=== PATIENT | female | born 1995 | race Caucasian/White ===

== ENCOUNTER 2016-06-29 14:44 | Emergency (ER) | payer BC, OTHER ==
[2016-06-29 14:53] VITALS: BP 170/88
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
== END 2016-06-29 15:40 | disposition home or self-care (01) ==
LOC: JD.ED 14:44
DX: H66.91 Otitis media, unspecified, right ear (principal); Z88.1 Allergy status to other antibiotic agents; Z88.8 Allergy status to other drugs, medicaments and biological substances; Z79.899 Other long term (current) drug therapy; Z90.49 Acquired absence of other specified parts of digestive tract; Z98.890 Other specified postprocedural states
CPT/HCPCS: 99283

== ENCOUNTER 2020-07-26 08:56 | Inpatient (IN) | payer BC ==
[2020-07-26] MEDS ORDERED: Sodium Chloride 0.9% 10 ML Syringe FLUSH PRN (09:56)
[2020-07-26] MEDS ORDERED: Lidocaine 1% 50 ML MDV INJECT ONE (09:56)
[2020-07-26] MEDS ORDERED: Ondansetron 4 MG/2 ML SDV IVPUSH PRN (09:56)
[2020-07-26] MEDS ORDERED: Nalbuphine 10 MG/1 ML Vial IVPUSH PRN (09:56)
[2020-07-26] MEDS ORDERED: Oxytocin/Lactated Ringers 10 UNIT/1,000 ML BAG IV SCH ×2 (10:00)
--- NOTE | 2020-07-26 10:06 | PCM.LDHP ---
L&D History of Present Illness - General Date of Service: 07/26/20 Admit Problem/Dx: Admission Diagnosis/Problem Admission Diagnosis/Problem 07/26/20 09:58 Shalini is a 24-year-old 1 para 0 female who is admitted on the a.m. of 07/26/2020 at 39 and 07 weeks gestational age with an JINA of 08/02/2020 in active labor with progressive cervical dilation. Source of Information: Patient History Limitations: Reports: No Limitations - History of Present Illness Introduction:: Shalini is a 24-year-old 1 para 0 female who is admitted on the a.m. of 07/26/2020 at 39 and 07 weeks gestational age with an JINA of 08/02/2020 in active labor with progressive cervical dilation. She reports her contractions started during the night. She was able to get some rest early on but not after about midnight. She has had some bloody show. She denies any leakage of fluid. Baby has been active. She is a patient of [facility]. 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 Patient has had normal menstrual cycle since approximately age 13. They occur monthly. Not using any control at the time of conception. She is a transfer from Dr. Velasquez with her first visit with me occurring at approximately 30 weeks gestation. She denies any STIs and has not had any abnormal Pap smears in the past. course. Patient was seen early in the by Dr. Velasquez. She had a ultrasound done on 03/17/2020 which was consistent with dates. Her LMP 10/27/2019 was used for her dating parameter. A very early ultrasound done on 12/10/2019 at 6-1/7 weeks gestational age was consistent with her dates also. She has been seen on a regular basis in my office since 30 weeks gestation. Her weight gain has been approximately 10 pounds during the course of that time. Her vital signs have been stable and fundal height growth has been minimally ahead of schedule. Baby's been in vertex presentation. She is group B strep negative. RhoGam and Tdap were administered on 05/12/2020 at [facility]. She suffers from dyspepsia during the course of the and has been on medications for this. She is attempting to do natural labor but is okay with epidural in labor for analgesia. Patient's immunization history is positive for Tdap on 05/12/2020. She is rubella immune. Had her hepatitis vaccinations in 2013. Hepatitis B immunizations in 1997 and meningococcal immunization in 2009. Laboratory testing in : Blood is O- with a negative antibody screen. Patient received Rh immunoglobulin on 05/12/2020. Her first hemoglobin was 13.1 g/dL. Platelets were 219,000. Her Pap smear was negative with a negative HPV assay. She is rubella immune. Hepatitis B surface antigen and HIV assays were both negative. Chlamydia, gonorrhea, hepatitis C evaluations were all negative. Second trimester labs showed a hemoglobin of 11.7 g/dL. Her platelets were 212,000 and her 1 hour GTT was normal at 102. RPR 05/12/2020 was nonreactive. Group B strep screen was negative. Allergies: 1. Augmentin and penicillin which cause hives. Medications: 1. Famotidine 20 mg p.o. daily as needed for dyspepsia 2. vitamins daily 3. Ferrous sulfate 325 mg p.o. daily Past medical history: Unremarkable Past surgical history: Unremarkable Family history mother, sister and brother health is in good condition. Father's health is unknown. Maternal grandmother is alive but has kidney disease. Maternal grandfather has had some type of cancer. No anesthesia, bleeding, blood clotting or related problems noted in the family. Social history: Patient is single. She lives in [place]. Her fianc is Mustapha. She does not use any significant also alcohol, drugs or tobacco. 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 Review of systems: In general patient has no complaints. She is abdirizak. They are mild. She is having some bloody show. Baby's been active. Skin: Negative Lungs: No infectious symptoms or shortness of breath Cardiovascular: No chest pain or exercise intolerance Breasts: No lumps, changes in size, pain, dimpling, discharge or axillary or supraclavicular concerns. GI: Negative : Body habitus changes associated with . Musculoskeletal: Negative Neurological: Negative Physical exam: In general the patient is well-developed, well-nourished, pleasant female of stated age in no acute distress. Skin is warm dry without lesions. HEENT, neck and back within normal limits. Lungs are clear with good breath sounds in all lung bonner. Cardiovascular exam shows regular and rhythm without murmurs. Breast exam deferred at this time having been done at the first visit at [facility]. Is not repeated at this time. Abdomen is gravid with last fundal height clinic at 39 cm. Baby in vertex presentation.. Genital per digital exam today shows cervix to be 4 cm, 95% effaced, soft, -2 station, cephalic presentation, anterior, bag wolfe intact. Extremities and neurological exam are grossly within normal limits. - Related Data Allergies/Adverse Reactions: Allergies Allergy/AdvReac Type Severity Reaction Status Date / Time amoxicillin trihydrate Allergy Hives Verified 05/13/20 22:52 [From Augmentin] Penicillins Allergy Hives Verified 05/13/20 22:52 potassium clavulanate Allergy Hives Verified 05/13/20 22:52 [From Augmentin] artificial sweeteners Allergy Airway Uncoded 05/13/20 22:52 Tightness bees AdvReac Other Uncoded 05/13/20 22:52 Home Medications: Home Meds Famotidine [Acid Controller] 20 mg PO BID #60 tablet 04/05/20 [Rx] Ondansetron [Zofran ODT] 4 mg PO Q6H PRN 05/13/20 [History] No122/Iron/Folic Acid [ Multi Tablet] 1 each PO DAILY 05/13/20 [History] Past Medical History HEENT History: Reports: Impaired Vision, Other (See Below) Other HEENT History: several eye surgeries. Cardiovascular History: Reports: Heart Murmur - Past Surgical History HEENT Surgical History: Reports: Oral Surgery Social & Family History - Caffeine Use Caffeine Use: Reports: Coffee, Energy Drinks H&P Review of Systems - Review of Systems: Review Of Systems: See Below L&D Exam - Exam Exam: See Below - Problem List (1) 39 weeks gestation of SNOMED Code(s): 27801617 ICD Code: Z3A.39 - 39 WEEKS GESTATION OF Status: Acute Current Visit: Yes Problem List Initiated/Reviewed/Updated: Yes Assessment/Plan Comment:: 1Kinjal Loya is a 24-year-old 1 para 0 female who is admitted on the a.m. of 07/26/2020 at 39 and 07 weeks gestational age with an JINA of 08/02/2020 in active labor with progressive cervical dilation. 2. Group B strep negative 3. Patient plans to breast-feed 4. Patient is Rh- with O- blood. Received RhoGam on 05/12/2020. Is a candidate for RhoGam if baby's blood is Rh+. 5. Tdap given during the course of her . 6. Patient desires natural labor but is okay with epidural for analgesia. 7. Risk factors for the include obesity Plan: 1. Anticipate normal spontaneous vaginal delivery 2. Epidural as needed 3. Support breast-feeding decision 4. Routine admission labs to consist of CBC, RPR, COVID-19 testing
[2020-07-26] MEDS: Lactated Ringers 1,000 ML IV SCH ×3 (12:30→15:01)
[2020-07-26] MEDS ORDERED: Bupivacaine/fentaNYL/NS 100 ML Bag EPIDUR PRN (13:16)
[2020-07-26] MEDS ORDERED: ePHEDrine 50 MG/ML SDV IVPUSH PRN (13:16)
[2020-07-26] MEDS ORDERED: diphenhydrAMINE 50 MG/ML SDV IVPUSH PRN (13:16)
[2020-07-26] MEDS ORDERED: fentaNYL 100 MCG/2 ML SDV EPIDUR PRN (13:16)
--- NOTE | 2020-07-26 13:39 | PCM.PREANE ---
Preanesthetic Assessment - Procedure Proposed Procedure: Labor epidural - Anesthesia/Transfusion/Family Hx Anesthesia History: Prior Anesthesia Without Reaction Family History of Anesthesia Reaction: No Transfusion History: No Prior Transfusion(s) Intubation History: Unknown - Review of Systems General: No Symptoms Pulmonary: No Symptoms Cardiovascular: No Symptoms Gastrointestinal: No Symptoms Neurological: No Symptoms Other: Reports: None - Physical Assessment NPO Status Date: 07/26/20 NPO Status Time: 10:00 Vital Signs: BP 127/60 HR 78 RR 24 Oxygen sat 100 99.4 Height: 1.63 m Weight: 116.573 kg ASA Class: 2 Mental Status: Alert & Oriented x3 Airway Class: Mallampati = 2 Dentition: Reports: Normal Dentition Thyro-Mental Finger Breadths: 3 Mouth Opening Finger Breadths: 2 ROM/Head Extension: Full Lungs: Clear to Auscultation, Normal Respiratory Effort Cardiovascular: Regular Rate, Regular Rhythm - Lab Values: Laboratory Last Values WBC 17.08 K/mm3 (3.98-10.04) H 07/26/20 10:20 RBC 4.46 M/mm3 (3.98-5.22) 07/26/20 10:20 Hgb 12.5 gm/dl (11.2-15.7) 07/26/20 10:20 Hct 38.4 % (34.1-44.9) 07/26/20 10:20 MCV 86.1 fl (79.4-94.8) 07/26/20 10:20 MCH 28.0 pg (25.6-32.2) 07/26/20 10:20 MCHC 32.6 g/dl (32.2-35.5) 07/26/20 10:20 RDW Std Deviation 44.0 fL (36.4-46.3) 07/26/20 10:20 Plt Count 233 K/mm3 (182-369) 07/26/20 10:20 MPV 12.4 fl (9.4-12.3) H 07/26/20 10:20 Neut % (Auto) 80.4 % (34.0-71.1) H 07/26/20 10:20 Lymph % (Auto) 13.2 % (19.3-51.7) L 07/26/20 10:20 [place] % (Auto) 5.8 % (4.7-12.5) 07/26/20 10:20 Eos % (Auto) 0.2 (0.7-5.8) L 07/26/20 10:20 Baso % (Auto) 0.1 % (0.1-1.2) 07/26/20 10:20 Neut # (Auto) 13.73 K/mm3 (1.56-6.13) H 07/26/20 10:20 Lymph # (Auto) 2.26 K/mm3 (1.18-3.74) 07/26/20 10:20 [place] # (Auto) 0.99 K/mm3 (0.24-0.36) H 07/26/20 10:20 Eos # (Auto) 0.04 K/mm3 (0.04-0.36) 07/26/20 10:20 Baso # (Auto) 0.01 K/mm3 (0.01-0.08) 07/26/20 10:20 SARS-CoV-2 RNA (DAMARIS) Negative (NEGATIVE) 07/26/20 10:00 Reviewed and okay to proceed - Allergies Allergies/Adverse Reactions: Allergies Allergy/AdvReac Type Severity Reaction Status Date / Time amoxicillin trihydrate Allergy Hives Verified 07/26/20 14:26 [From Augmentin] Penicillins Allergy Hives Verified 07/26/20 14:26 potassium clavulanate Allergy Hives Verified 07/26/20 14:26 [From Augmentin] artificial sweeteners Allergy Airway Uncoded 05/13/20 22:52 Tightness bees AdvReac Other Uncoded 05/13/20 22:52 - Blood Blood Available: No Product(s) Available: None - Anesthesia Plan Pre-Op Medication Ordered: None - Acknowledgements Anesthesia Type Planned: Epidural Pt an Appropriate Candidate for the Planned Anesthesia: Yes Alternatives and Risks of Anesthesia Discussed w Pt/Guardian: Yes Pt/Guardian Understands and Agrees with Anesthesia Plan: Yes PreAnesthesia Questionnaire HEENT History: Reports: Impaired Vision, Other (See Below) Other HEENT History: several eye surgeries. Cardiovascular History: Reports: Heart Murmur Other Cardiovascular History: History of heart murmur as child. Not heard during assessment. 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: - Past Surgical History HEENT Surgical History: Reports: Oral Surgery Other HEENT Surgeries/Procedures: Eye surgery GI Surgical History: Reports: Appendectomy, Cholecystectomy - SUBSTANCE USE Second Hand Smoke Exposure: No Recreational Drug Use History: No - HOME MEDS Home Medications: Home Meds Famotidine [Acid Controller] 20 mg PO BID #60 tablet 04/05/20 [Rx] Ondansetron [Zofran ODT] 4 mg PO Q6H PRN 05/13/20 [History] No122/Iron/Folic Acid [ Multi Tablet] 1 each PO DAILY 05/13/20 [History] - CURRENT (IN HOUSE) MEDS Current Meds: Current Medications Diphenhydramine HCl (Diphenhydramine 50 Mg/Ml Sdv) 25 mg IVPUSH Q6H PRN PRN Reason: pruritis Ephedrine Sulfate (Ephedrine 50 Mg/Ml Sdv) 5 mg IVPUSH ASDIRECTED PRN PRN Reason: Hypotension Fentanyl (Fentanyl 100 Mcg/2 Ml Sdv) 100 mcg EPIDUR Q3H PRN PRN Reason: Pain Last Admin: 07/26/20 13:25 Dose: 100 mcg Documented by: Fentanyl/Bupivacaine HCl (Bupivacaine/Fentanyl/Ns 100 Ml Bag) 100 ml EPIDUR ASDIRECTED PRN PRN Reason: Pain Last Admin: 07/26/20 13:27 Dose: 100 ml Documented by: Oxytocin/Lactated Ringer's (Pitocin In Lr 10 Units/1,000 Ml) 10 unit in 1,000 mls @ 500 mls/hr IV .CONTINUOUS DEANA Lactated Ringer's (Ringers, Lactated) 1,000 mls @ 100 mls/hr IV ASDIRECTED DEANA Oxytocin/Lactated Ringer's (Pitocin In Lr 10 Units/1,000 Ml) 10 unit in 1,000 mls @ 12 mls/hr IV TITRATE DEANA; Protocol Nalbuphine HCl (Nalbuphine 10 Mg/1 Ml Vial) 10 mg IVPUSH Q2H PRN PRN Reason: Pain Last Admin: 07/26/20 10:25 Dose: 10 mg Documented by: Ondansetron HCl (Ondansetron 4 Mg/2 Ml Sdv) 4 mg IVPUSH Q4H PRN PRN Reason: Nausea/Vomiting Sodium Chloride (Sodium Chloride 0.9% 10 Ml Syringe) 10 ml FLUSH ASDIRECTED PRN PRN Reason: Keep Vein Open Discontinued Medications Lidocaine HCl (Lidocaine 1% 50 Ml Mdv) 50 ml INJECT ONETIME ONE Stop: 07/26/20 09:57
[2020-07-26] MEDS ORDERED: Lidocaine 1.5% with EPINEPHrine 1:200,000 5 ML Amp ONE (14:00)
[2020-07-26] MEDS ORDERED: Bupivacaine 0.25% 10 ML SDV ONE (14:00)
--- NOTE | 2020-07-26 20:52 | PCM.SN.2 ---
- Free Text/Narrative Note: Delivery note: Stage I: Shalini is a 24-year-old 1 now para 1-0-0-1 female who was admitted on the a.m. of 07/26/2020 at 39 and 07 weeks gestational age with an JINA of 08/02/2020 in active labor with progressive cervical dilation. She progressed spontaneously and at approximately 6 cm had artificial rupture membranes with resultant light meconium-stained amniotic fluid. She underwent epidural for analgesia in labor. She had good results with this. She advanced to complete cervical dilation by approximately 1730 hrs. heart tones were reassuring throughout the and labor course. Stage II: The patient delivered a viable, nicholson, male named Stu Christensen precipitously at 1948 hrs. on 07/26/2020 in a delivery attended only by by nursing personnel. She is reported to have delivered in an occiput anterior position. Baby weighed 3510 g (7 pounds 12 ounces). Length is 21.5 inches, Apgars were 8 and 9. Umbilical cord was allowed to pulsate until it stopped and then was clamped x2 and cut by the baby's father. Cord blood was obtained. Umbilical cord had 3 vessels. Upon delivery Pitocin was increased via IV to 500 cc an hour using the routine 10 units per 1 L solution concentration. This to facilitate increase in uterine tone and decrease likelihood of bleeding. Patient was noted to have a second-degree laceration with a side superficial laceration of the medial labia minora. The perineal laceration was repaired with a running suture of 3-0 Monocryl. Labor epidural analgesia was used for perineal laceration repair anesthesia with fair results. Stage III: The placenta delivered at 2002 hrs. in a [place] presentation. It appeared mildly meconium-stained. It appeared intact and complete and was discarded per patient desire. Estimated blood loss was 200 cc. Condition: Good. Patient plans to breast-feed.
[2020-07-26] MEDS ORDERED: Acetaminophen 325 MG Tab PO PRN (21:03)
[2020-07-26] MEDS ORDERED: Docusate Sodium 100 MG Cap PO PRN (21:03)
[2020-07-26] MEDS ORDERED: Benzocaine/Menthol 20%-0.5% Spray 56 GM Canister TOP PRN (21:03)
[2020-07-26] MEDS: Ibuprofen 600 MG Tab PO PRN (21:52)
[2020-07-26] MEDS: Witch Hazel Medicated Pads 40/Jar TOP PRN (21:52)
--- NOTE | 2020-07-27 07:03 | PCM48HPAN ---
Post Anesthesia Note - EVALUATION WITHIN 48HRS OF ANESTHETIC Vital Signs in Normal Range: Yes Patient Participated in Evaluation: Yes Respiratory Function Stable: Yes Airway Patent: Yes Cardiovascular Function Stable: Yes Hydration Status Stable: Yes Pain Control Satisfactory: Yes Nausea and Vomiting Control Satisfactory: Yes Mental Status Recovered: Yes Vital Signs: Last Vital Signs Temp 36.8 C 07/27/20 05:01 Pulse 81 07/27/20 05:01 Resp 16 07/27/20 05:01 BP 127/75 07/27/20 05:01 Pulse Ox 99 07/27/20 05:01
--- NOTE | 2020-07-27 07:46 | PCM.PNPP ---
- General Info Date of Service: 07/27/20 Functional Status: Reports: Pain Controlled - Review of Systems General: Reports: No Symptoms HEENT: Reports: No Symptoms Pulmonary: Reports: No Symptoms Cardiovascular: Reports: No Symptoms Gastrointestinal: Reports: No Symptoms Genitourinary: Reports: No Symptoms Musculoskeletal: Reports: No Symptoms Skin: Reports: No Symptoms Neurological: Reports: No Symptoms Psychiatric: Reports: No Symptoms - General Info Date of Service: 07/27/20 - Patient Data Vital Signs - Most Recent: Last Vital Signs Temp 36.8 C 07/27/20 05:01 Pulse 81 07/27/20 05:01 Resp 16 07/27/20 05:01 BP 127/75 07/27/20 05:01 Pulse Ox 99 07/27/20 05:01 Weight - Most Recent: 116.573 kg I&O - Last 24 Hours: Intake & Output 07/26/20 07/27/20 07/27/20 22:59 06:59 14:59 Intake Total 1999 2211 Output Total Balance 196V 2212 Lab Results - Last 24 Hours: Laboratory Results - last 24 hr 07/26/20 07/26/20 07/26/20 Range/Units 10:00 10:20 10:20 WBC 17.08 H (3.98-10.04) K/mm3 RBC 4.46 (3.98-5.22) M/mm3 Hgb 12.5 (11.2-15.7) gm/dl Hct 38.4 (34.1-44.9) % MCV 86.1 (79.4-94.8) fl MCH 28.0 (25.6-32.2) pg MCHC 32.6 (32.2-35.5) g/dl RDW Std Deviation 44.0 (36.4-46.3) fL Plt Count 233 (182-369) K/mm3 MPV 12.4 H (9.4-12.3) fl Neut % (Auto) 80.4 H (34.0-71.1) % Lymph % (Auto) 13.2 L (19.3-51.7) % [place] % (Auto) 5.8 (4.7-12.5) % Eos % (Auto) 0.2 L (0.7-5.8) Baso % (Auto) 0.1 (0.1-1.2) % Neut # (Auto) 13.73 H (1.56-6.13) K/mm3 Lymph # (Auto) 2.26 (1.18-3.74) K/mm3 [place] # (Auto) 0.99 H (0.24-0.36) K/mm3 Eos # (Auto) 0.04 (0.04-0.36) K/mm3 Baso # (Auto) 0.01 (0.01-0.08) K/mm3 RPR Non-reactive (NONREACTIVE) SARS-CoV-2 RNA (DAMARIS) Negative (NEGATIVE) Blood Type Gel Antibody Screen Screen RhIG Candidate? Rhogam Indicated 07/26/20 Range/Units 23:08 WBC (3.98-10.04) K/mm3 RBC (3.98-5.22) M/mm3 Hgb (11.2-15.7) gm/dl Hct (34.1-44.9) % MCV (79.4-94.8) fl MCH (25.6-32.2) pg MCHC (32.2-35.5) g/dl RDW Std Deviation (36.4-46.3) fL Plt Count (182-369) K/mm3 MPV (9.4-12.3) fl Neut % (Auto) (34.0-71.1) % Lymph % (Auto) (19.3-51.7) % [place] % (Auto) (4.7-12.5) % Eos % (Auto) (0.7-5.8) Baso % (Auto) (0.1-1.2) % Neut # (Auto) (1.56-6.13) K/mm3 Lymph # (Auto) (1.18-3.74) K/mm3 [place] # (Auto) (0.24-0.36) K/mm3 Eos # (Auto) (0.04-0.36) K/mm3 Baso # (Auto) (0.01-0.08) K/mm3 RPR (NONREACTIVE) SARS-CoV-2 RNA (DAMARIS) (NEGATIVE) Blood Type O NEGATIVE Gel Antibody Screen Negative Screen 0 ros/5 flds - neg RhIG Candidate? Yes Rhogam Indicated Yes, baby rh pos H Med Orders - Current: Current Medications Acetaminophen (Acetaminophen 325 Mg Tab) 650 mg PO Q4H PRN PRN Reason: mild pain or fever Benzocaine/Menthol (Benzocaine/Menthol 20%-0.5% [place] 56 Gm Canister) 0 gm TOP ASDIRECTED PRN PRN Reason: Perineal Comfort Measure Last Admin: 07/26/20 21:52 Dose: 1 can Documented by: Docusate Sodium (Docusate Sodium 100 Mg Cap) 100 mg PO BID PRN PRN Reason: Constipation Last Admin: 07/26/20 21:52 Dose: 100 mg Documented by: Ibuprofen (Ibuprofen 600 Mg Tab) 600 mg PO Q4H PRN PRN Reason: Mild pain or fever Last Admin: 07/26/20 21:52 Dose: 600 mg Documented by: Prenat Multivit/[place]/Iron/Folic Ac ( Multivitamin With Calcium/Folic Acid/Iron Tab) 1 each PO DAILY DEANA Witch Zandra (Witch Zandra Medicated Pads 40/Jar) 1 pad TOP ASDIRECTED PRN PRN Reason: Perineal Comfort Measure Last Admin: 07/26/20 21:52 Dose: 1 can Documented by: Discontinued Medications Diphenhydramine HCl (Diphenhydramine 50 Mg/Ml Sdv) 25 mg IVPUSH Q6H PRN PRN Reason: pruritis Ephedrine Sulfate (Ephedrine 50 Mg/Ml Sdv) 5 mg IVPUSH ASDIRECTED PRN PRN Reason: Hypotension Fentanyl (Fentanyl 100 Mcg/2 Ml Sdv) 100 mcg EPIDUR Q3H PRN PRN Reason: Pain Last Admin: 07/26/20 13:25 Dose: 100 mcg Documented by: Fentanyl/Bupivacaine HCl (Bupivacaine/Fentanyl/Ns 100 Ml Bag) 100 ml EPIDUR ASDIRECTED PRN PRN Reason: Pain Last Admin: 07/26/20 13:27 Dose: 100 ml Documented by: Oxytocin/Lactated Ringer's (Pitocin In Lr 10 Units/1,000 Ml) 10 unit in 1,000 mls @ 500 mls/hr IV .CONTINUOUS DEANA Lactated Ringer's (Ringers, Lactated) 1,000 mls @ 100 mls/hr IV ASDIRECTED DEANA Last Admin: 07/26/20 15:01 Dose: 100 mls/hr Documented by: Oxytocin/Lactated Ringer's (Pitocin In Lr 10 Units/1,000 Ml) 10 unit in 1,000 mls @ 12 mls/hr IV TITRATE DEANA; Protocol Lidocaine HCl (Lidocaine 1% 50 Ml Mdv) 50 ml INJECT ONETIME ONE Stop: 07/26/20 09:57 Nalbuphine HCl (Nalbuphine 10 Mg/1 Ml Vial) 10 mg IVPUSH Q2H PRN PRN Reason: Pain Last Admin: 07/26/20 10:25 Dose: 10 mg Documented by: Ondansetron HCl (Ondansetron 4 Mg/2 Ml Sdv) 4 mg IVPUSH Q4H PRN PRN Reason: Nausea/Vomiting Sodium Chloride (Sodium Chloride 0.9% 10 Ml Syringe) 10 ml FLUSH ASDIRECTED PRN PRN Reason: Keep Vein Open - Infant Interaction Support Person: Significant Other - Recovery Exam Fundal Tone: Firm Fundal Level: At Umbilicus Fundal Placement: Midline Lochia Amount: Small Lochia Color: Rubra/Red Perineum Description: Intact, Minimal Bruising/Swelling Episiotomy/Laceration: Approximated Bladder Status: Voiding Urinary Elimination: Voided - Exam General: Alert, Oriented Neck: Supple Lungs: Clear to Auscultation, Normal Respiratory Effort Cardiovascular: Regular Rate, Regular Rhythm GI/Abdominal Exam: Normal Bowel Sounds, Soft, Non-Tender, No Organomegaly, No Distention, No Abnormal Bruit, No Mass, Pelvis Stable Extremities: Normal Inspection, Normal Range of Motion, Non-Tender, No Pedal Edema, Normal Capillary Refill Skin: Warm, Dry, Intact Wound/Incisions: Healing Well Neurological: No New Focal Deficit Psy/Mental Status: Alert, Normal Affect, Normal Mood - Problem List Review Problem List Initiated/Reviewed/Updated: Yes - Assessment Assessment:: day 1. Doing well. No complaints. Minimal bleeding. Minimal pain. Probable discharge tomorrow.
[2020-07-27] MEDS: Prenatal Multivitamin with Calcium/Folic Acid/Iron Tab PO SCH (09:05)
[2020-07-27] MEDS: Ibuprofen 600 MG Tab PO PRN ×2 (09:16→22:56)
[2020-07-27] MEDS: Witch Hazel Medicated Pads 40/Jar TOP PRN (16:05)
--- NOTE | 2020-07-28 09:09 | PCM.DCSUM1 ---
Discharge Summary - Hospital Course Diagnosis: Stroke: No Modified Lara Scale: No Symptoms at All Modified Lara Scale Score: 0 - Discharge Data Discharge Date: 07/28/20 Discharge Disposition: Home, Self-Care 01 Condition: Good - Referral to Home Health Primary Care Physician: Martínez Espino MD - Patient Summary/Data Hospital Course: Stage I: Shalini is a 24-year-old 1 now para 1-0-0-1 female who was admitted on the a.m. of 07/26/2020 at 39 and 07 weeks gestational age with an JINA of 08/02/2020 in active labor with progressive cervical dilation. She progressed spontaneously and at approximately 6 cm had artificial rupture membranes with resultant light meconium-stained amniotic fluid. She underwent epidural for analgesia in labor. She had good results with this. She advanced to complete cervical dilation by approximately 1730 hrs. heart tones were reassuring throughout the and labor course. Stage II: The patient delivered a viable, nicholson, male infant named Stu Christensen precipitously at 1948 hrs. on 07/26/2020 in a delivery attended only by by nursing personnel. She is reported to have delivered in an occiput anterior position. Baby weighed 3510 g (7 pounds 12 ounces). Length is 21.5 inches, Apgars were 8 and 9. Umbilical cord was allowed to pulsate until it stopped and then was clamped x2 and cut by the baby's father. Cord blood was obtained. Umbilical cord had 3 vessels. Upon delivery Pitocin was increased via IV to 500 cc an hour using the routine 10 units per 1 L solution concentration. This to facilitate increase in uterine tone and decrease likelihood of bleeding. Patient was noted to have a second-degree laceration with a side superficial laceration of the medial labia minora. The perineal laceration was repaired with a running suture of 3-0 Monocryl. Labor epidural analgesia was used for perineal laceration repair anesthesia with fair results. Stage III: The placenta delivered at 2002 hrs. in a [place] presentation. It appeared mildly meconium-stained. It appeared intact and complete and was discarded per patient desire. Estimated blood loss was 200 cc. Condition: Good. Patient plans to breast-feed. - Patient Instructions Diet: Usual Diet as Tolerated Activity: No Strenuous Activities Driving: May Drive Today Showering/Bathing: May Shower Notify Provider of: Fever, Increased Pain, Swelling and Redness, Drainage, Nausea and/or Vomiting - Discharge Plan *PRESCRIPTION DRUG MONITORING PROGRAM REVIEWED*: No *COPY OF PRESCRIPTION DRUG MONITORING REPORT IN PATIENT CARLY: No Home Medications: Home Meds Famotidine [Acid Controller] 20 mg PO BID #60 tablet 04/05/20 [Rx] No122/Iron/Folic Acid [ Multi Tablet] 1 each PO DAILY 05/13/20 [History] Referrals: Martínez Espino MD [Primary Care Provider] - (2 weeks) - Discharge Summary/Plan Comment DC Time >30 min.: No - General Info Date of Service: 07/28/20 Functional Status: Reports: Pain Controlled - Review of Systems General: Reports: No Symptoms HEENT: Reports: No Symptoms Pulmonary: Reports: No Symptoms Cardiovascular: Reports: No Symptoms Gastrointestinal: Reports: No Symptoms Genitourinary: Reports: No Symptoms Musculoskeletal: Reports: No Symptoms Skin: Reports: No Symptoms Neurological: Reports: No Symptoms Psychiatric: Reports: No Symptoms - Patient Data Vitals - Most Recent: Last Vital Signs Temp 36.7 C 07/28/20 04:25 Pulse 72 07/28/20 04:25 Resp 14 07/28/20 04:25 BP 131/77 07/28/20 04:25 Pulse Ox 100 07/28/20 04:25 Weight - Most Recent: 116.573 kg Lab Results - Last 24 hrs: Laboratory Results - last 24 hr 07/26/20 Range/Units 23:08 Blood Type O NEGATIVE Gel Antibody Screen Negative Screen 0 ros/5 flds - neg RhIG Candidate? Yes Rhogam Indicated Yes, baby rh pos H Med Orders - Current: Current Medications Acetaminophen (Acetaminophen 325 Mg Tab) 650 mg PO Q4H PRN PRN Reason: mild pain or fever Benzocaine/Menthol (Benzocaine/Menthol 20%-0.5% Fletcher 56 Gm Canister) 0 gm TOP ASDIRECTED PRN PRN Reason: Perineal Comfort Measure Last Admin: 07/26/20 21:52 Dose: 1 can Documented by: Docusate Sodium (Docusate Sodium 100 Mg Cap) 100 mg PO BID PRN PRN Reason: Constipation Last Admin: 07/26/20 21:52 Dose: 100 mg Documented by: Ibuprofen (Ibuprofen 600 Mg Tab) 600 mg PO Q4H PRN PRN Reason: Mild pain or fever Last Admin: 07/27/20 22:56 Dose: 600 mg Documented by: Prenat Multivit/Stallion Manager/Iron/Folic Ac ( Multivitamin With Calcium/Folic Acid/Iron Tab) 1 each PO DAILY DEANA Last Admin: 07/27/20 09:05 Dose: 1 each Documented by: Lorena De Paz (Lorena De Paz Medicated Pads 40/Jar) 1 pad TOP ASDIRECTED PRN PRN Reason: Perineal Comfort Measure Last Admin: 07/27/20 16:05 Dose: 1 tub Documented by: Discontinued Medications Bupivacaine HCl (Bupivacaine 0.25% 10 Ml Sdv) 30 ml .ROUTE .STK-MED ONE Stop: 07/26/20 14:01 Diphenhydramine HCl (Diphenhydramine 50 Mg/Ml Sdv) 25 mg IVPUSH Q6H PRN PRN Reason: pruritis Ephedrine Sulfate (Ephedrine 50 Mg/Ml Sdv) 5 mg IVPUSH ASDIRECTED PRN PRN Reason: Hypotension Fentanyl (Fentanyl 100 Mcg/2 Ml Sdv) 100 mcg EPIDUR Q3H PRN PRN Reason: Pain Last Admin: 07/26/20 13:25 Dose: 100 mcg Documented by: Fentanyl/Bupivacaine HCl (Bupivacaine/Fentanyl/Ns 100 Ml Bag) 100 ml EPIDUR ASDIRECTED PRN PRN Reason: Pain Last Admin: 07/26/20 13:27 Dose: 100 ml Documented by: Oxytocin/Lactated Ringer's (Pitocin In Lr 10 Units/1,000 Ml) 10 unit in 1,000 mls @ 500 mls/hr IV .CONTINUOUS DEANA Lactated Ringer's (Ringers, Lactated) 1,000 mls @ 100 mls/hr IV ASDIRECTED DEANA Last Admin: 07/26/20 15:01 Dose: 100 mls/hr Documented by: Oxytocin/Lactated Ringer's (Pitocin In Lr 10 Units/1,000 Ml) 10 unit in 1,000 mls @ 12 mls/hr IV TITRATE DEANA; Protocol Lidocaine HCl (Lidocaine 1% 50 Ml Mdv) 50 ml INJECT ONETIME ONE Stop: 07/26/20 09:57 Last Admin: 07/27/20 14:30 Dose: Not Given Documented by: Lidocaine/Epinephrine (Lidocaine 1.5% With Epinephrine 1:200,000 5 Ml Amp) 5 ml .ROUTE .STK-MED ONE Stop: 07/26/20 14:01 Nalbuphine HCl (Nalbuphine 10 Mg/1 Ml Vial) 10 mg IVPUSH Q2H PRN PRN Reason: Pain Last Admin: 07/26/20 10:25 Dose: 10 mg Documented by: Ondansetron HCl (Ondansetron 4 Mg/2 Ml Sdv) 4 mg IVPUSH Q4H PRN PRN Reason: Nausea/Vomiting Sodium Chloride (Sodium Chloride 0.9% 10 Ml Syringe) 10 ml FLUSH ASDIRECTED PRN PRN Reason: Keep Vein Open - Exam General: Reports: Alert, Oriented HEENT: Reports: Pupils Equal, Pupils Reactive, EOMI, Mucous Membr. Moist/[place] Neck: Reports: Supple Lungs: Reports: Clear to Auscultation, Normal Respiratory Effort Cardiovascular: Reports: Regular Rate, Regular Rhythm GI/Abdominal Exam: Normal Bowel Sounds, Soft, Non-Tender, No Organomegaly, No Distention, No Abnormal Bruit, No Mass, Pelvis Stable Rectal (Female) Exam: Normal Exam, Normal Rectal Tone Back Exam: Reports: Normal Inspection, Full Range of Motion Extremities: Normal Inspection, Normal Range of Motion, Non-Tender, No Pedal Edema, Normal Capillary Refill Skin: Reports: Warm, Dry, Intact Wound/Incisions: Reports: Healing Well Neurological: Reports: No New Focal Deficit Psy/Mental Status: Reports: Alert, Normal Affect, Normal Mood
[2020-07-28] MEDS: Prenatal Multivitamin with Calcium/Folic Acid/Iron Tab PO SCH (09:32)
[2020-07-28 11:51] VITALS: BP 140/80; PULSE 64
== END 2020-07-28 11:05 | disposition home or self-care (01) | DRG 560 ==
LOC: JD.OBCHECK 08:56 → JD.OB 09:00 → JD.OBCHECK 11:10 → JD.OB 11:11 → OBSVTOIN 19:48 → JD.OB 19:49
PROVIDERS: ADMIT Obstetrics & Gynecology; ATTEND Obstetrics & Gynecology
PROC: 10E0XZZ Delivery of Products of Conception, External Approach (ICD-10-PCS; principal; 2020-07-26)
PROC: 10907ZC Drainage of Amniotic Fluid, Therapeutic from Products of Conception, Via Natural or Artificial Opening (ICD-10-PCS; 2020-07-26)
PROC: 0KQM0ZZ Repair Perineum Muscle, Open Approach (ICD-10-PCS; 2020-07-26)
PROC: 3E0R3BZ Introduction of Anesthetic Agent into Spinal Canal, Percutaneous Approach (ICD-10-PCS; 2020-07-26)
DX: O62.3 Precipitate labor (principal); Z37.0 Single live birth; O77.0 Labor and delivery complicated by meconium in amniotic fluid; Z3A.39 39 weeks gestation of pregnancy; Z20.822 Contact with and (suspected) exposure to COVID-19; O70.1 Second degree perineal laceration during delivery; Z91.030 Bee allergy status; Z91.048 Other nonmedicinal substance allergy status; Z90.49 Acquired absence of other specified parts of digestive tract; Z88.0 Allergy status to penicillin
CPT/HCPCS: 01967; 36415; 51701; 51702; 59025; 59409; 85025; 85461; 86592; 86850; 86900; 86901; A9270-GY; J2300; J2790; J3010; J3490; J7120; U0002

== ENCOUNTER 2024-03-22 09:59 | Inpatient (IN) | payer BC ==
[2024-03-22] MEDS ORDERED: Nalbuphine 10 MG/1 ML Vial IVPUSH PRN (10:10)
[2024-03-22] MEDS ORDERED: Lidocaine 1% 50 ML MDV INJECT PRN (10:10)
[2024-03-22 10:35] LABS: BASOPHILS PERCENT AUTO 0.2 % (0.0-1.0); EOSINOPHILS PERCENT AUTO 0.2 % (0.0-6.0); HEMATOCRIT 35.2 % (37.0-47.0); HEMOGLOBIN 11.5 gm/dl (12.0-16.0); IMMATURE GRAN ABSOLUTE AUTO 0.04 K/mm3 (0.00-0.05); IMMATURE GRAN PERCENT AUTO 0.3 % (0.0-0.4); LYMPHOCYTES PERCENT AUTO 17.6 % (24.0-44.0); MEAN CORPUSCULAR HEMOGLOBIN 26.7 pg (28.0-32.0); MEAN CORPUSCULAR HGB CONC 32.7 g/dl (32.0-36.0); MEAN CORPUSCULAR VOLUME 81.9 fl (83.0-99.0); MEAN PLATELET VOLUME 12.3 fl (9.4-12.3); MONOCYTES ABSOLUTE AUTO 0.6 K/mm3 (0.0-0.8); MONOCYTES PERCENT AUTO 4.9 % (0.0-8.0); NEUTROPHILS ABSOLUTE AUTO 8.8 K/mm3 (1.8-7.7); NEUTROPHILS PERCENT AUTO 76.8 % (41.0-71.0); PLATELET COUNT,PLT 216 K/mm3 (150-400); WHITE BLOOD CELL COUNT,WBC 11.45 K/mm3 (3.9-11.3)
[2024-03-22] MEDS: Oxytocin/0.9 % Sodium Chloride 30 UNIT/500 ML BAG IV SCH ×2 (10:43→20:28)
[2024-03-22] MEDS: Lactated Ringers 1,000 ML IV SCH (10:43)
[2024-03-22] MEDS ORDERED: diphenhydrAMINE 50 MG/ML SDV IVPUSH PRN (12:10)
[2024-03-22] MEDS ORDERED: ePHEDrine 50 MG/ML SDV IVPUSH PRN (12:10)
[2024-03-22 12:12] LABS: CREATININE 0.6 mg/dL (0.55-1.02); ESTIMATED GFR 126 mL/min (>60)
[2024-03-22] MEDS: Bupivacaine/fentaNYL/NS 100 ML Bag EPIDUR PRN (12:25)
[2024-03-22] MEDS: Ondansetron 4 MG/2 ML SDV IVPUSH PRN (14:25)
[2024-03-22 14:42] LABS: CREATININE,URINE RAND 118.7 mg/dL (30.0-125.0)
[2024-03-22 14:43] LABS: PROTEIN,URINE RANDOM < 6.0 mg/dL (0.0-11.8)
[2024-03-22] MEDS ORDERED: Acetaminophen 325 MG Tab PO PRN (20:29)
[2024-03-22] MEDS ORDERED: Docusate Sodium 100 MG Cap PO PRN (20:29)
[2024-03-22] MEDS: Ibuprofen 600 MG Tab PO SCH (21:01)
[2024-03-22] MEDS: Witch Hazel Medicated Pads 40/Jar TOP PRN (21:45)
[2024-03-22] MEDS: Benzocaine/Menthol 20%-0.5% Spray 78 GM Cannister TOP PRN (21:45)
[2024-03-23 20:36] VITALS: BP 125/82; PULSE 60
== END 2024-03-23 19:30 | disposition home or self-care (01) | DRG 560 ==
LOC: JD.OBCHECK 09:59 → JD.OB 10:00 → JD.OBCHECK 10:10 → JD.OB 10:10 → OBSVTOIN 19:16 → JD.OB 19:17
PROVIDERS: ADMIT Obstetrics & Gynecology; ATTEND Obstetrics & Gynecology
PROC: 10E0XZZ Delivery of Products of Conception, External Approach (ICD-10-PCS; principal; 2024-03-22)
PROC: 10907ZC Drainage of Amniotic Fluid, Therapeutic from Products of Conception, Via Natural or Artificial Opening (ICD-10-PCS; 2024-03-22)
PROC: 3E033VJ Introduction of Other Hormone into Peripheral Vein, Percutaneous Approach (ICD-10-PCS; 2024-03-22)
PROC: 3E0R3BZ Introduction of Anesthetic Agent into Spinal Canal, Percutaneous Approach (ICD-10-PCS; 2024-03-22)
PROC: 00HU33Z Insertion of Infusion Device into Spinal Canal, Percutaneous Approach (ICD-10-PCS; 2024-03-22)
DX: O26.893 Other specified pregnancy related conditions, third trimester (principal); Z37.0 Single live birth; L29.9 Pruritus, unspecified; O36.0930 Maternal care for other rhesus isoimmunization, third trimester, not applicable or unspecified; O26.643 Intrahepatic cholestasis of pregnancy, third trimester; E78.79 Other disorders of bile acid and cholesterol metabolism; K76.89 Other specified diseases of liver; Z67.91 Unspecified blood type, Rh negative; Z3A.37 37 weeks gestation of pregnancy
CPT/HCPCS: 01967; 36415; 36430; 51702; 59025; 59409; 82565; 82570; 84156; 85025; 85461; 86592; 86850; 86900; 86901; A9270-GY; J2405; J2791; J3490; J7120; J7999

== ENCOUNTER 2024-12-28 07:30 | Day surgery (SDC) | payer BC, OTHER ==
[~2024-12-28 07:30] MED LIST: Sodium Chloride 0.9% 10 ML Syringe FLUSH PRN; Sodium Chloride 0.9% 10 ML Syringe FLUSH SCH
[2024-12-28] MEDS: Lactated Ringers 1,000 ML IV SCH (07:45)
[2024-12-28] MEDS ORDERED: propofoL 500 MG/50 ML 50 ML ONE (08:26)
[2024-12-28 09:39] VITALS: BP 144/76; PULSE 88
== END 2024-12-28 09:32 | disposition home or self-care (01) ==
LOC: JD.SDS 07:30
PROVIDERS: ATTEND Surgery
DX: K62.89 Other specified diseases of anus and rectum (principal); E66.813 Obesity, class 3; Z88.8 Allergy status to other drugs, medicaments and biological substances; Z88.0 Allergy status to penicillin; Z68.43 Body mass index [BMI] 50.0-59.9, adult; Z91.030 Bee allergy status; Z79.899 Other long term (current) drug therapy
CPT/HCPCS: 45380; J2003; J2704; J7120; 00811